=== PATIENT | female | born 1980 | race Caucasian/White ===

== ENCOUNTER 2017-12-07 10:10 | Emergency (ER) | payer MEDICARE, OTHER ==
[~2017-12-07 10:10] MED LIST: OMEP40CA2 PO
[2017-12-07 11:56] VITALS: BP 115/65; PULSE 82; RESP 20; TEMP 97.5; O2SAT 94
[2017-12-07 12:12] VITALS: O2SAT 100
[2017-12-07] MEDS ORDERED: SODIUM CHLORIDE 0.9% FLUSH 10 ML FLUSH IVF PRN (12:15)
--- NOTE | 2017-12-07 12:19 | PD ---
HPI Chief Complaint: Seizure Time Seen by Provider: 12:07 Travel History International Travel<30 days: No Contact w/Intl Traveler<30days: No Traveled to known affect area: No History of Present Illness HPI The patient is a 37-year-old female who presents to the emergency department for possible new onset seizure. The patient was working earlier today, standing upright, when she started "shaking". The patient did not lose consciousness at that time, however, staff at the assisted living facility thought she was undergoing a seizure in placed her on the ground. The patient is unsure if there is any LOC. The shaking resolved on its own. She denied any tongue biting or urinary incontinence. She denies any history of seizures. She does have a history of schizophrenia, bipolar affective disorder, anxiety , and violent outbursts. She denies being on any current medications. She is currently on Depo-Provera, does not have menstrual cycles. She denies any current physical complaints except for mild headache. She denies any chest pain , shortness of breath, nausea, vomiting, abdominal pain, or focal deficits. PFSH Past Medical History Bipolar Disorder: Yes Anxiety: Yes Schizophrenia: Yes ?: Not LMP: on depo : 1 Para: 1 Social History Alcohol Use: No Tobacco Use: No Substance Use: No Allergies-Medications (Allergen,Severity, Reaction): Coded Allergies: No Known Allergies (Unverified , 05/25/16) Reported Meds & Prescriptions Reported Meds & Active Scripts Active No Active Prescriptions or Reported Medications Review of Systems Except as stated in HPI: all other systems reviewed are Neg General / Constitutional: No: Fever Eyes: No: Visual changes HENT: Positive: Headaches, No: Neck Pain Cardiovascular: No: Chest Pain or Discomfort Respiratory: No: Shortness of Breath Gastrointestinal: No: Nausea, Vomiting, Abdominal Pain Neurologic: No: Headache, Change in Mentation, Paresthesia, Seizures, Sensory Disturbance Psychiatric: Positive: Anxiety, Disorder of Thought Physical Exam Narrative GENERAL: Awake, alert, pleasant 37-year-old female who appears her stated age and is in no acute respiratory distress. SKIN: Focused skin assessment warm/dry. HEAD: Atraumatic. Normocephalic. EYES: Pupils equal and round. 3 mm bilateral and reactive. Mild exstrophy of the right eye on examination. EOMs appear intact. ENT: No nasal bleeding or discharge. Mucous membranes pink and moist. NECK: Trachea midline. No JVD. CARDIOVASCULAR: Regular rate and rhythm. No murmur appreciated. RESPIRATORY: No accessory muscle use. Clear to auscultation. Breath sounds equal bilaterally. GASTROINTESTINAL: Abdomen soft, non-tender, nondistended. No rebound tenderness. MUSCULOSKELETAL: No obvious deformities. No clubbing. No cyanosis. No edema. NEUROLOGICAL: Awake and alert. No obvious cranial nerve deficits. Motor grossly within normal limits. Normal speech. Nonfocal. Oriented 4. PSYCHIATRIC: Appropriate mood and affect; insight and judgment normal. Data Data Last Documented VS Vital Signs Date Time Temp Pulse Resp B/P (MAP) Pulse Ox O2 Delivery O2 Flow Rate FiO2 12/07/17 12:12 100 Room Air 12/07/17 11:56 97.5 82 20 115/65 (82) Orders Orders Complete Blood Count With Diff (12/07/17 12:00) Drug Screen, Random Urine (12/07/17 12:00) Comprehensive Metabolic Panel (12/07/17 12:00) Ua Includes Microscopic (12/07/17 12:00) Electrocardiogram (12/07/17 ) Ct Brain W/O Iv Contrast(Rout) (12/07/17 ) Blood Glucose (12/07/17 12:14) Ecg Monitoring (12/07/17 12:14) Iv Access Insert/Monitor (12/07/17 12:14) Oximetry (12/07/17 12:14) Sodium Chloride 0.9% Flush (Ns Flush) (12/07/17 12:15) Lactic Acid (12/07/17 12:14) Labs Laboratory Tests Test 12/07/17 12:30 12/07/17 13:15 White Blood Count 6.5 TH/MM3 Red Blood Count 4.39 MIL/MM3 Hemoglobin 12.9 GM/DL Hematocrit 36.6 % Mean Corpuscular Volume 83.5 FL Mean Corpuscular Hemoglobin 29.4 PG Mean Corpuscular Hemoglobin Concent 35.2 % Red Cell Distribution Width 13.6 % Platelet Count 184 TH/MM3 Mean Platelet Volume 9.2 FL Neutrophils (%) (Auto) 59.0 % Lymphocytes (%) (Auto) 31.4 % Monocytes (%) (Auto) 7.1 % Eosinophils (%) (Auto) 1.8 % Basophils (%) (Auto) 0.7 % Neutrophils # (Auto) 3.8 TH/MM3 Lymphocytes # (Auto) 2.0 TH/MM3 Monocytes # (Auto) 0.5 TH/MM3 Eosinophils # (Auto) 0.1 TH/MM3 Basophils # (Auto) 0.0 TH/MM3 CBC Comment DIFF FINAL Differential Comment Blood Urea Nitrogen 8 MG/DL Creatinine 0.82 MG/DL Random Glucose 75 MG/DL Total Protein 7.7 GM/DL Albumin 4.1 GM/DL Calcium Level 9.0 MG/DL Alkaline Phosphatase 60 U/L Aspartate Amino Transf (AST/SGOT) 11 U/L Alanine Aminotransferase (ALT/SGPT) 12 U/L Total Bilirubin 0.5 MG/DL Sodium Level 142 MEQ/L Potassium Level 4.1 MEQ/L Chloride Level 110 MEQ/L Carbon Dioxide Level 28.2 MEQ/L Anion Gap 4 MEQ/L Estimat Glomerular Filtration Rate 79 ML/MIN Lactic Acid Level 0.7 mmol/L Urine Color LIGHT-YELLOW Urine Turbidity CLEAR Urine pH 7.0 Urine Specific [place] 1.004 Urine Protein NEG mg/dL Urine Glucose (UA) NEG mg/dL Urine Ketones NEG mg/dL Urine Occult Blood NEG Urine Nitrite NEG Urine Bilirubin NEG Urine Urobilinogen LESS THAN 2.0 MG/DL Urine Leukocyte Esterase NEG Urine RBC LESS THAN 1 /hpf Urine Squamous Epithelial Cells 1 /hpf Urine Opiates Screen NEG Urine Barbiturates Screen NEG Urine Amphetamines Screen NEG Urine Benzodiazepines Screen NEG Urine Cocaine Screen NEG Urine Cannabinoids Screen NEG MDM Medical Decision Making Medical Screen Exam Complete: Yes Emergency Medical Condition: Yes Medical Record Reviewed: Yes Interpretation(s) EKG reveals normal sinus rhythm with a rate of 68. Short KS interval of 114 ms. No significant ischemic changes or ectopy noted. Last Impressions Head CT 12/07/17 0000 Signed Impressions: Service Date/Time: Thursday, December 07, 2017 12:36 - CONCLUSION: Negative for an acute process Dinh Lombardi MD FACR Laboratory Tests Test 12/07/17 12:30 12/07/17 13:15 White Blood Count 6.5 TH/MM3 Red Blood Count 4.39 MIL/MM3 Hemoglobin 12.9 GM/DL Hematocrit 36.6 % Mean Corpuscular Volume 83.5 FL Mean Corpuscular Hemoglobin 29.4 PG Mean Corpuscular Hemoglobin Concent 35.2 % Red Cell Distribution Width 13.6 % Platelet Count 184 TH/MM3 Mean Platelet Volume 9.2 FL Neutrophils (%) (Auto) 59.0 % Lymphocytes (%) (Auto) 31.4 % Monocytes (%) (Auto) 7.1 % Eosinophils (%) (Auto) 1.8 % Basophils (%) (Auto) 0.7 % Neutrophils # (Auto) 3.8 TH/MM3 Lymphocytes # (Auto) 2.0 TH/MM3 Monocytes # (Auto) 0.5 TH/MM3 Eosinophils # (Auto) 0.1 TH/MM3 Basophils # (Auto) 0.0 TH/MM3 CBC Comment DIFF FINAL Differential Comment Blood Urea Nitrogen 8 MG/DL Creatinine 0.82 MG/DL Random Glucose 75 MG/DL Total Protein 7.7 GM/DL Albumin 4.1 GM/DL Calcium Level 9.0 MG/DL Alkaline Phosphatase 60 U/L Aspartate Amino Transf (AST/SGOT) 11 U/L Alanine Aminotransferase (ALT/SGPT) 12 U/L Total Bilirubin 0.5 MG/DL Sodium Level 142 MEQ/L Potassium Level 4.1 MEQ/L Chloride Level 110 MEQ/L Carbon Dioxide Level 28.2 MEQ/L Anion Gap 4 MEQ/L Estimat Glomerular Filtration Rate 79 ML/MIN Lactic Acid Level 0.7 mmol/L Urine Color LIGHT-YELLOW Urine Turbidity CLEAR Urine pH 7.0 Urine Specific [place] 1.004 Urine Protein NEG mg/dL Urine Glucose (UA) NEG mg/dL Urine Ketones NEG mg/dL Urine Occult Blood NEG Urine Nitrite NEG Urine Bilirubin NEG Urine Urobilinogen LESS THAN 2.0 MG/DL Urine Leukocyte Esterase NEG Urine RBC LESS THAN 1 /hpf Urine Squamous Epithelial Cells 1 /hpf Urine Opiates Screen NEG Urine Barbiturates Screen NEG Urine Amphetamines Screen NEG Urine Benzodiazepines Screen NEG Urine Cocaine Screen NEG Urine Cannabinoids Screen NEG Differential Diagnosis Differential diagnosis includes new onset seizure, seizure, hypocalcemia, hyponatremia, arrhythmia, intracranial hemorrhage, intracranial tumor, somatization. Narrative Course IV was established, labs were drawn and sent, and the patient was placed on cardiac telemetry monitoring and continuous pulse oximetry monitoring. CT of the brain was obtained. Lactic acid was sent to lab. Labs are unremarkable. Tox screen is negative. The patient does state she is under a great deal of stress, has a history of anxiety, psychotic outburst, and bipolar affective disorder. Appears to be stress reaction. The patient was able to eat without difficulty. She will be discharged back to her living facility. Diagnosis Primary Impression: Stress reaction Patient Instructions: General Instructions Additional Instructions: Follow-up with your primary physician. Please provide the patient a copy of her CT results and lab results at discharge. Return if symptoms worsen or progress. Med/Other Pt SpecificInfo: No Change to Meds Scripts No Active Prescriptions or Reported Meds Disposition: 01 DISCHARGE HOME Condition: Stable Jose A Olmedo MD Dec 07, 2017 12:19
--- NOTE | 2017-12-07 12:44 | RADRPT ---
EXAM DATE/TIME: 12/07/2017 12:36 [facility] COMPARISON: No previous studies available for comparison. INDICATIONS : Patient had seizure today. RADIATION DOSE: 34.85 CTDIvol (mGy) MEDICAL HISTORY : None SURGICAL HISTORY : None. ENCOUNTER: Initial ACUITY: 1 day PAIN SCALE: 0/10 LOCATION: Bilateral cranial TECHNIQUE: Multiple contiguous axial images were obtained of the head. Using automated exposure control and adj ustment of the mA and/or kV according to patient size, radiation dose was kept as low as reasonably a chievable to obtain optimal diagnostic quality images. DICOM format image data is available electro nically for review and comparison. FINDINGS: CEREBRUM: The ventricles are normal for age. No evidence of midline shift, mass lesion, hemorrhage or acute in farction. No extra-axial fluid collections are seen. POSTERIOR FOSSA: The cerebellum and brainstem are intact. The 4th ventricle is midline. The cerebellopontine angle i s unremarkable. EXTRACRANIAL: The visualized portion of the orbits is intact. SKULL: The calvaria is intact. No evidence of skull fracture. CONCLUSION: Negative for an acute process Dinh Lombardi MD FACR on December 07, 2017 at 12:41 Board Certified Radiologist. This report was verified electronically.
[2017-12-07 13:00] LABS: AUTOMATED NEUTROPHIL # 3.8 TH/MM3 (1.8-7.7); BASOPHIL % 0.7 % (0.0-2.0); EOSINOPHIL # 0.1 TH/MM3 (0-0.4); EOSINOPHIL % 1.8 % (0.0-4.0); HEMATOCRIT 36.6 % (35.0-46.0); HEMOGLOBIN 12.9 GM/DL (11.6-15.3); LYMPH % 31.4 % (9.0-44.0); MEAN CELL VOLUME 83.5 FL (80.0-100.0); MEAN CORPUSCULAR HEMOGLOBIN 29.4 PG (27.0-34.0); MEAN CORPUSCULAR HGB CONC 35.2 % (32.0-36.0); MEAN PLATELET VOLUME 9.2 FL (7.0-11.0); MONO % 7.1 % (0.0-8.0); MONOCYTE # 0.5 TH/MM3 (0-0.9); PLATELET COUNT 184 TH/MM3 (150-450); RED BLOOD COUNT 4.39 MIL/MM3 (4.00-5.30); RED CELL DISTRIBUTION WIDTH 13.6 % (11.6-17.2); WHITE BLOOD COUNT 6.5 TH/MM3 (4.0-11.0)
[2017-12-07 13:14] LABS: ALBUMIN 4.1 GM/DL (3.4-5.0); ALT (GPT) 12 U/L (10-53); AST (GOT) 11 U/L (15-37); BICARBONATE 28.2 MEQ/L (21.0-32.0); BLOOD UREA NITROGEN 8 MG/DL (7-18); CHLORIDE 110 MEQ/L (98-107); CREATININE 0.82 MG/DL (0.50-1.00); GLOMERULAR FILTRATION RATE 79 ML/MIN (>89); GLUCOSE,RANDOM 75 MG/DL (74-106); SODIUM (NA) 142 MEQ/L (136-145)
[2017-12-07 13:17] LABS: ALKALINE PHOSPHATASE 60 U/L (45-117); TOTAL BILIRUBIN ADULT 0.5 MG/DL (0.2-1.0); TOTAL PROTEIN 7.7 GM/DL (6.4-8.2)
[2017-12-07 13:35] LABS: BILIRUBIN, URINE NEG (NEG); BLOOD, URINE NEG (NEG); GLUCOSE,URINE NEG (NEG); KETONE, URINE NEG (NEG); NITRITE,URINE NEG (NEG); SQUAMOUS EPITHELIAL CELL URINE 1 /hpf (0-5); URINE COLOR LIGHT-YELLOW (YELLW/STRAW); URINE LEUKOCYTE ESTERASE NEG (NEG)
--- NOTE | 2017-12-08 21:48 | EKG ---
Date Performed: 12/07/2017 Time Performed: 12:28:17 PTAGE: 37 years EKG: Sinus rhythm WITH SHORT VT INTERVAL NONSPECIFIC T WAVE ABNORMALITY BORDERLINE ECG PREVIOUS TRACING : 05/25/2016 22.50 No significant change from previous tracing noted. DOCTOR: Cristopher Rich Interpretating Date/Time 12/08/2017 21:47:33
== END 2017-12-07 14:39 | disposition home or self-care (01) ==
LOC: NEPD 10:10
DX: Z73.3 Stress, not elsewhere classified (principal); R94.31 Abnormal electrocardiogram [ECG] [EKG]; F31.9 Bipolar disorder, unspecified; F20.9 Schizophrenia, unspecified; F41.9 Anxiety disorder, unspecified
CPT/HCPCS: 70450; 80053; 80307; 81001; 83605; 85025; 93005